=== PATIENT | male | born 1955 | race Caucasian/White ===

== ENCOUNTER → 2017-12-19 | Outpatient (CLI) | payer OTHER ==
[~2017-12-19] MED LIST: ASPI-715 PO; AUG500 PO; BIMOD OP; MULTIVIT; TAM4 PO; VALS1TAB61 PO
== END ==
LOC: AUD 13:00
PROVIDERS: ATTEND Physician Assistant Medical
DX: H90.42 Sensorineural hearing loss, unilateral, left ear, with unrestricted hearing on the contralateral side (principal)
CPT/HCPCS: 92552